=== PATIENT | female | born 1975 | race Caucasian/White ===

== ENCOUNTER → 2018-12-19 | Outpatient (REF) | payer OTHER ==
[2018-12-19 13:46] LABS: BASO % 0.5 % (0.0-1.0); EOS # 0.1 10^3/uL (0.0-0.50); EOS % 1.3 % (0.0-3.0); HEMATOCRIT 42.7 % (36.0-47.0); HEMOGLOBIN 14.2 g/dl (12.0-15.5); LYMPH # 1.3 10^3/uL (1.5-4.5); LYMPH % 34.4 % (24.0-44.0); MEAN CORPUSCULAR HEMOGLOBIN 29.2 pg (27.0-33.0); MEAN CORPUSCULAR HGB CONC 33.3 g/dl (32.0-36.5); MEAN CORPUSCULAR VOLUME 87.7 fl (80.0-96.0); MONO # 0.4 10^3/uL (0.0-0.8); MONO % 9.5 % (0.0-5.0); NEUTROPHILS # 2.1 10^3/uL (1.8-7.7); PLATELET COUNT, AUTOMATED 181 10^3/uL (150-450); RED BLOOD COUNT 4.87 10^6/uL (4.00-5.40); WHITE BLOOD COUNT 3.9 10^3/uL (4.0-10.0)
[2018-12-19 14:02] LABS: ALBUMIN 4.2 GM/DL (3.2-5.2); ALT/SGPT 15 U/L (12-78); BILIRUBIN,TOTAL 0.5 MG/DL (0.2-1.0); BLOOD UREA NITROGEN 10 MG/DL (7-18); CALCIUM LEVEL 9.1 MG/DL (8.5-10.1); CARBON DIOXIDE LEVEL 28 MEQ/L (21-32); CHLORIDE LEVEL 104 MEQ/L (98-107); CREATININE FOR GFR 0.69 MG/DL (0.55-1.30); FOLATE > 24.0 NG/ML; GLOMERULAR FILTRATION RATE > 60.0 (>58); GLUCOSE, FASTING 86 MG/DL (70-100); RHEUMATOID FACTOR QUANT < 10.0 IU/ML (<15.0); SODIUM LEVEL 138 MEQ/L (136-145); VITAMIN B12 LEVEL 736 PG/ML
[2018-12-19 14:05] LABS: ERYTHROCYTE SEDIMENTATION RATE 1 mm/hr (0-20)
[2018-12-19 14:15] LABS: DRVV SCREEN 30.5 SEC
[2018-12-19 14:21] LABS: PTT LUPUS TYPE ANTICOAG SCREEN 0.7 (0-1.2); TOTAL 25(OH) VITAMIN D 33.3 NG/ML (30.0-100.0)
[2018-12-20 10:21] LABS: HEPATITIS B SURFACE ANTIBODY NEGATIVE (POSITIVE)
[2018-12-20 11:01] LABS: HEPATITIS C VIRUS ABY INDEX 0.1 INDEX (<0.8)
[2018-12-21 11:15] LABS: ALBUMIN 4.23 GM/DL (3.29-5.55); ALBUMIN % 60.4 % (55.8-66.1); ALPHA-1-GLOBULIN % 3.5 % (2.9-4.9); ALPHA-1-GLOBULINS 0.25 GM/DL (0.17-0.41); ALPHA-2-GLOBULINS 0.57 GM/DL (0.42-0.99); ALPHA-2-GLOBULINS % 8.1 % (7.1-11.8); BETA-1-GLOBULINS 0.41 GM/DL (0.28-0.60); BETA-1-GLOBULINS % 5.9 % (4.7-7.2); BETA-2-GLOBULINS 0.32 GM/DL (0.19-0.55); BETA-2-GLOBULINS % 4.5 % (3.2-6.5); GAMMA GLOBULIN % 17.6 % (11.1-18.8); GAMMA GLOBULINS 1.23 GM/DL (0.65-1.58)
[2018-12-25 15:22] LABS: ANCA-ATYPICAL <1:20 titer (Neg:<1:20); ANTI DS-DNA AB <1:10 titer (.); ANTINUCLEAR ANTIBODIES DIRECT Negative (Negative); CYTOPLASMIC NEUTROP AB ANCA-C <1:20 titer (Neg:<1:20); HERPES ZOSTER, VARICELLA IgG 1251 index (Immune >165); Lyme Disease IgG/IgM Antibodie <0.91 ISR (0.00-0.90); Lyme Disease IgM Ab Quantitati <0.80 index (0.00-0.79); PERINUCLEAR AB ANCA-P <1:20 titer (Neg:<1:20); SJOGREN'S ANTI SS-A <0.2 AI (0.0-0.9); SJOGREN'S ANTI SS-B 0.2 AI (0.0-0.9); VITAMIN B6,PYRIDOXAL PHOSPHATE 82.1 ug/L (2.0-32.8); VITAMIN E(ALPHA TOCOPHEROL) 12.5 mg/L (7.0-25.1); VITAMIN E(GAMMA TOCOPHEROL) 0.8 mg/L (0.5-5.5)
== END ==
LOC: M LABNEURO 10:47
PROVIDERS: ATTEND Psychiatry & Neurology Neurology
DX: G35 Multiple sclerosis (principal)

== ENCOUNTER 2019-01-09 08:44 | Outpatient (CLI) | payer OTHER ==
[~2019-01-09] VITALS: Ht 157.5 cm; Wt 54.5 kg
[2019-01-09] VITALS (7 sets, daily range): BP systolic 98–119; BP diastolic 53–60
[2019-01-09] MEDS ORDERED: diphenhydrAMINE 25 MG CAP PO ONE (09:15)
[2019-01-09] MEDS ORDERED: ACETAMINOPHEN TAB 650MG DOSE (2X325MG) PO ONE (09:15)
[2019-01-09] MEDS ORDERED: methylPREDNISolone INJ 125 MG/2 ML VIAL (J2930) IV ONE (09:15)
[2019-01-09] MEDS ORDERED: OCRELIZUMAB 600 MG in NS 500 ML IV ONE (09:15)
[2019-01-09] MEDS ORDERED: 0.22 MICRON FILTER (METHACHOLINE/OCREVUS) XX ONE (09:15)
== END 2019-01-09 12:30 | disposition home or self-care (01) ==
LOC: M INFU 08:44
PROVIDERS: ATTEND Psychiatry & Neurology Neurology
DX: G35 Multiple sclerosis (principal)
CPT/HCPCS: 96375; 96413; 96415; J2350; J2930

== ENCOUNTER 2019-01-24 10:20 | Outpatient (CLI) | payer OTHER ==
[~2019-01-24] VITALS: Ht 157.5 cm; Wt 54.2 kg
[2019-01-24] MEDS ORDERED: methylPREDNISolone 1,000 MG, VIAL MATE ADAPTER 1 EACH in D5W 250 ML IV ONE (10:45)
[2019-01-24 11:11] VITALS: BP 119/55
[2019-01-24 11:53] VITALS: BP 115/58
== END 2019-01-24 12:00 | disposition home or self-care (01) ==
LOC: M INFU 10:20
PROVIDERS: ATTEND Psychiatry & Neurology Neurology
DX: G35 Multiple sclerosis (principal)
CPT/HCPCS: 96365; J2930

== ENCOUNTER 2019-01-25 08:16 | Outpatient (CLI) | payer OTHER ==
[~2019-01-25] VITALS: Ht 157.5 cm; Wt 56.0 kg
[2019-01-25 09:49] VITALS: BP 116/56
[2019-01-25] MEDS ORDERED: methylPREDNISolone 1,000 MG, VIAL MATE ADAPTER 1 EACH in D5W 250 ML IV ONE (10:00)
[2019-01-25 11:23] VITALS: BP 104/55
[2019-01-26] MEDS ORDERED: ZOLO50TA PO (10:48)
== END 2019-01-25 11:30 | disposition home or self-care (01) ==
LOC: M OPCLIPED 08:16 → M PED 08:19 → M OPCLIPED 11:30
PROVIDERS: ATTEND Psychiatry & Neurology Neurology
DX: G35 Multiple sclerosis (principal)
CPT/HCPCS: 96374; J2930

== ENCOUNTER 2019-01-26 10:36 | Outpatient (CLI) | payer OTHER ==
[~2019-01-26] VITALS: Ht 157.5 cm; Wt 52.0 kg
[2019-01-26 10:42] VITALS: BP 132/67
[2019-01-26] MEDS ORDERED: ZOLO50TA PO (10:48)
[2019-01-26] MEDS ORDERED: methylPREDNISolone 1,000 MG, VIAL MATE ADAPTER 1 EACH in D5W 250 ML IV ONE (11:15)
[2019-01-26 12:35] VITALS: BP 121/61
== END 2019-01-26 12:35 | disposition home or self-care (01) ==
LOC: M OPCLIPED 10:36 → M PED 10:40 → M OPCLIPED 12:35
PROVIDERS: ATTEND Psychiatry & Neurology Neurology
DX: G35 Multiple sclerosis (principal)
CPT/HCPCS: 96365; J2930

== ENCOUNTER 2019-07-09 07:53 | Outpatient (CLI) | payer OTHER ==
[2019-07-09] VITALS (7 sets, daily range): BP systolic 103–113; BP diastolic 50–56
[~2019-07-09] VITALS: Ht 157.5 cm; Wt 54.2 kg
[~2019-07-09 07:53] MED LIST: ZOLO50TA PO
[2019-07-09] MEDS ORDERED: diphenhydrAMINE 25 MG CAP PO ONE (09:00)
[2019-07-09] MEDS ORDERED: methylPREDNISolone INJ 125 MG/2 ML VIAL (J2930) IV ONE (09:00)
[2019-07-09] MEDS ORDERED: ACETAMINOPHEN TAB 650MG DOSE (2X325MG) PO ONE (09:00)
[2019-07-09] MEDS ORDERED: OCRELIZUMAB 600 MG in NS 500 ML IV ONE (09:00)
== END 2019-07-09 13:30 | disposition home or self-care (01) ==
LOC: EDBD → M INFU 07:53
PROVIDERS: ATTEND Psychiatry & Neurology Neurology
DX: G35 Multiple sclerosis (principal)
CPT/HCPCS: 96413; 96415; J2350; J2930

== ENCOUNTER → 2019-08-07 | Outpatient (REF) | payer OTHER | LOC: M LAB REF 09:32 | PROVIDERS: ATTEND Dermatology | DX: D48.9 Neoplasm of uncertain behavior, unspecified (principal) ==

== ENCOUNTER → 2019-08-16 | Outpatient (REF) | payer OTHER | LOC: M LAB REF 09:03 | PROVIDERS: ATTEND Dermatology | DX: D04.62 Carcinoma in situ of skin of left upper limb, including shoulder (principal) ==

== ENCOUNTER 2019-12-07 13:31 | Outpatient (CLI) | payer OTHER ==
[~2019-12-07] VITALS: Ht 157.5 cm; Wt 54.5 kg
[2019-12-07 13:35] VITALS: BP 120/57
[2019-12-07] MEDS ORDERED: methylPREDNISolone 1,000 MG, VIAL MATE ADAPTER 1 EACH in D5W 250 ML IV ONE (13:45)
[2019-12-07] MEDS ORDERED: VALT500T PO (14:16)
[2019-12-07 15:20] VITALS: BP 116/59
== END 2019-12-07 15:20 | disposition home or self-care (01) ==
LOC: M INFU 13:31
PROVIDERS: ATTEND Psychiatry & Neurology Neurology
DX: G35 Multiple sclerosis (principal)
CPT/HCPCS: 96365; J2930

== ENCOUNTER 2019-12-08 10:27 | Outpatient (CLI) | payer OTHER ==
[~2019-12-08] VITALS: Ht 157.5 cm; Wt 54.5 kg
[~2019-12-08 10:27] MED LIST changes: +VALT500T PO
[2019-12-08 10:45] VITALS: BP 116/57
[2019-12-08] MEDS ORDERED: methylPREDNISolone 1,000 MG, VIAL MATE ADAPTER 1 EACH in D5W 250 ML IV ONE (11:30)
== END 2019-12-08 12:48 | disposition home or self-care (01) ==
LOC: M INFU 10:27 → M MSPAV 10:29 → M INFU 12:48
PROVIDERS: ATTEND Psychiatry & Neurology Neurology
DX: G35 Multiple sclerosis (principal)
CPT/HCPCS: 96365; 96366; J2930

== ENCOUNTER 2019-12-09 10:30 | Outpatient (CLI) | payer OTHER ==
[~2019-12-09] VITALS: Ht 157.5 cm; Wt 54.5 kg
[2019-12-09 11:00] VITALS: BP 117/59
[2019-12-09] MEDS ORDERED: methylPREDNISolone 1,000 MG, VIAL MATE ADAPTER 1 EACH in D5W 250 ML IV ONE (12:00)
== END 2019-12-09 13:15 | disposition home or self-care (01) ==
LOC: M MSPAV 10:30 → M INFU 10:30
PROVIDERS: ATTEND Psychiatry & Neurology Neurology
DX: G35 Multiple sclerosis (principal)
CPT/HCPCS: 96365; J2930

== ENCOUNTER 2020-01-07 07:56 | Outpatient (CLI) | payer OTHER ==
[2020-01-07] VITALS (7 sets, daily range): BP systolic 107–130; BP diastolic 53–87
[~2020-01-07] VITALS: Ht 157.5 cm; Wt 54.5 kg
[2020-01-07] MEDS ORDERED: diphenhydrAMINE 25MG CAP PO ONE (08:15)
[2020-01-07] MEDS ORDERED: OCRELIZUMAB 600 MG in NS 500 ML IV ONE (08:15)
[2020-01-07] MEDS ORDERED: ACETAMINOPHEN TAB 650MG DOSE (2X325MG) PO ONE (08:15)
[2020-01-07] MEDS ORDERED: methylPREDNISolone 125MG 2ML VIAL IV ONE (08:15)
[2020-01-07] MEDS ORDERED: OCRE300I IV (08:23)
[2020-01-07] MEDS ORDERED: 0.22 MICRON FILTER (METHACHOLINE/OCREVUS) XX ONE (12:45)
== END 2020-01-07 13:45 | disposition home or self-care (01) ==
LOC: M INFU 07:56
PROVIDERS: ATTEND Psychiatry & Neurology Neurology
DX: G35 Multiple sclerosis (principal)

== ENCOUNTER → 2020-06-04 | Outpatient (CLI) | payer OTHER ==
[~2020-06-04] MED LIST changes: +OCRE300I IV
--- NOTE | 2020-06-04 12:38 | REPMRS ---
Patient History The patient states she has not had a clinical breast exam in over a year. Patient has history of other cancer at age 29. Family history of breast cancer at age 60 in maternal grandmother, breast cancer at age 60 in maternal aunt. Digital Woman Screen Mammo: June 04, 2020 - Exam #: [id number] Bilateral CC and MLO view(s) were taken. Technologist: Janel Padilla Technologist Prior study comparison: February 12, 2019, bilateral digital mammo screening bilat, performed at [facility]. September 30, 2016, bilateral digital mammo screening bilat, performed at [place]. August 29, 2014, bilateral digital mammo screening bilat, performed at [facility]. FINDINGS: The breast tissue is heterogeneously dense. This may lower the sensitivity of mammography. The Volpara volumetric breast density category is: C. There is a moderate amount of heterogeneously dense fibroglandular tissue which is fairly symmetric. There is no interval development of dominant mass, architectural distortion, or grouped microcalcification typical of malignancy. There has been no change in the appearance of the mammogram from the prior studies. 3-D tomosynthesis shows no additional findings. Assessment: BI-RADS/ACR category 1 mammogram. Negative Mammogram. Recommendation Routine screening mammogram of both breasts in 1 year (for women over age 40). This patient's Lifetime Breast Cancer RIsk is estimated at 19.7 %. This mammogram was interpreted with the aid of an FDA-approved computer-aided dectection system. Electronically Signed By: Orville Blanc MD 06/04/20 [id number]
== END ==
LOC: M WHC 11:25
PROVIDERS: ATTEND Student in an Organized Health Care Education/Training Program
DX: Z12.31 Encounter for screening mammogram for malignant neoplasm of breast (principal); Z85.9 Personal history of malignant neoplasm, unspecified

== ENCOUNTER → 2020-11-06 | Outpatient (REF) | payer OTHER | LOC: M LAB REF 16:25 | PROVIDERS: ATTEND Physician Assistant | DX: L57.0 Actinic keratosis (principal) ==

== ENCOUNTER 2021-01-05 08:35 | Outpatient (CLI) | payer OTHER ==
[2021-01-05] VITALS (7 sets, daily range): BP systolic 108–121; BP diastolic 53–65
[~2021-01-05] VITALS: Ht 157.5 cm; Wt 52.2 kg
[~2021-01-05 08:35] MED LIST changes: +ACETAMINOPHEN TAB 650MG DOSE (2X325MG) PO ONE; +OCRELIZUMAB 600 MG in NS 500 ML IV ONE; +diphenhydrAMINE 25MG CAP PO ONE; +methylPREDNISolone 125MG 2ML VIAL IV ONE
== END 2021-01-05 14:50 | disposition home or self-care (01) ==
LOC: M INFU 08:35
PROVIDERS: ATTEND Psychiatry & Neurology Neurology
DX: G35 Multiple sclerosis (principal)
CPT/HCPCS: 96375; 96413; 96415; J2350; J2930